=== PATIENT | male | born 1990 | race Caucasian/White ===

== ENCOUNTER 2017-09-23 21:08 | Emergency (ER) | payer OTHER ==
[~2017-09-23] VITALS: Ht 175.3 cm; Wt 70.3 kg
[2017-09-23 21:20] VITALS: BP 148/90
[2017-09-23] MEDS ORDERED: NOVOLOG100 UNIT/1 SUBQ (21:25)
[2017-09-23] MEDS ORDERED: LEVEMIR100 UNIT/1 SUBQ (21:25)
[2017-09-23] MEDS ORDERED: BACTRIM DS TAB1 EACH PO (21:41)
== END 2017-09-23 21:48 | disposition home or self-care (01) ==
LOC: M.ERS 21:08
DX: F15.10 Other stimulant abuse, uncomplicated (principal); S20.419A Abrasion of unspecified back wall of thorax, initial encounter; S30.811A Abrasion of abdominal wall, initial encounter; E11.9 Type 2 diabetes mellitus without complications; X58.XXXA Exposure to other specified factors, initial encounter; Y93.89 Activity, other specified; Y92.89 Other specified places as the place of occurrence of the external cause; Y99.8 Other external cause status

== ENCOUNTER 2019-11-24 16:03 | Emergency (ER) | payer OTHER ==
[~2019-11-24] VITALS: Ht 175.3 cm; Wt 77.1 kg
[~2019-11-24 16:03] MED LIST: BACTRIM DS TAB1 EACH PO; LEVEMIR100 UNIT/1 SUBQ; NOVOLOG100 UNIT/1 SUBQ
[2019-11-24 16:37] LABS: ABSOLUTE BASOPHILS 0.1 thou/uL (0.0-0.2); ABSOLUTE EOSINOPHILS 0.1 thou/uL (0.0-0.7); ABSOLUTE LYMPHOCYTES 2.9 thou/uL (0.8-5.3); ABSOLUTE MONOCYTES 0.9 thou/uL (0.0-1.2); ABSOLUTE NEUTROPHILS 7.4 thou/uL (1.6-8.1); BASOPHILS 0.6 %; CALCIUM 8.3 mg/dL (8.5-10.1); CREATININE 1.2 mg/dL (0.6-1.3); EOSINOPHILS 0.8 %; HEMATOCRIT 42.1 % (42.0-52.0); HEMOGLOBIN 14.2 gm/dL (14.0-18.0); LYMPHOCYTES 25.3 %; MCH 31.5 pg (26.0-34.0); MCHC 33.8 g/dL (28.0-37.0); MCV 93.2 fL (80.0-100.0); MONOCYTES 8.1 %; MPV 9.8 fl. (7.2-11.1); NUCLEATED RBCS 0 /100WBC; PLATELET COUNT* 232 thou/uL (150-400); POLYS 65.2 %; RBC 4.52 mil/uL (4.50-6.00); WBC 11.4 thou/uL (4.0-11.0)
[2019-11-24 16:40] LABS: POTASSIUM 2.5 mmol/L (3.5-5.1)
[2019-11-24 16:42] LABS: ALBUMIN 3.7 g/dL (3.4-5.0); TOTAL BILIRUBIN 0.3 mg/dL (<0.1-1.0)
[2019-11-24 17:23] LABS: URINE BILIRUBIN NEGATIVE (Negative); URINE BLOOD 2+ (Negative); URINE CLARITY CLEAR; URINE COLOR YELLOW; URINE GLUCOSE-RANDOM 3+ (Negative); URINE KETONES NEGATIVE (Negative); URINE LEUKOCYTES-REFLEX NEGATIVE (Negative); URINE NITRITE-REFLEX NEGATIVE (Negative); URINE PROTEIN 1+ (Negative); URINE UROBILINOGEN 0.2 E.U./dl (0.2-1.0)
[2019-11-24 17:30] LABS: AMP/METHAMP Negative (Negative); BARBITURATES Negative (Negative); BENZODIAZEPINES Negative (Negative); COCAINE Negative (Negative); METHADONE Negative (Negative); OPIATES Negative (Negative); PCP Negative (Negative); THC POSITIVE (Negative)
[2019-11-24 17:44] LABS: MUCUS None Seen strn/LPF (None Seen); SQUAMOUS NONE SEEN /LPF (0-3)
[2019-11-24 17:45] LABS: BACTERIA-REFLEX None Seen /HPF (None Seen); CASTS None Seen /LPF (None Seen); CRYSTALS None Seen /LPF (None Seen); URINE RBC 3-10 Few /HPF (0-2); URINE WBC-REFLEX 0-5 Rare /HPF (0-5)
[2019-11-24 19:30] VITALS: BP 101/51
--- NOTE | 2019-11-25 13:55 | EKG ---
[place] [address] ELECTROCARDIOGRAM REPORT Name: KIM PLATA Room: [facility]#: [id number] Admission: 11/24/19 Attend Phys: Discharge: 11/24/19 Date of : 86 Date of Service: 11/24/19 1613 Report #: [id number] THIS REPORT FOR: //name// 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 11/25/19 1352 12 12 Андрей Patel MD, FACC /EPI
== END 2019-11-24 20:30 | disposition home or self-care (01) ==
LOC: M.ERS 16:03
PROVIDERS: Personal Emergency Response Attendant
DX: E11.649 Type 2 diabetes mellitus with hypoglycemia without coma (principal); E87.6 Hypokalemia; R41.82 Altered mental status, unspecified; Z79.4 Long term (current) use of insulin

== ENCOUNTER 2020-10-01 19:15 | Emergency (ER) | payer OTHER ==
[~2020-10-01] VITALS: Ht 175.3 cm; Wt 72.6 kg
[2020-10-01] MEDS ORDERED: OMEPRAZOLE 20 M20 M1 PO (19:24)
[2020-10-01] MEDS ORDERED: APAP W/CODEINE1 TA2 PO (19:56)
[2020-10-01] MEDS ORDERED: AMOXICILLIN875 MG PO (19:56)
[2020-10-01] MEDS ORDERED: AUGMENTIN 875-1 EACH PO (19:59)
[2020-10-01 20:13] VITALS: BP 142/70
== END 2020-10-01 20:14 | disposition home or self-care (01) ==
LOC: M.ERS 19:15
DX: J02.0 Streptococcal pharyngitis (principal); Z20.822 Contact with and (suspected) exposure to COVID-19; E11.9 Type 2 diabetes mellitus without complications

== ENCOUNTER 2020-11-04 17:19 | Emergency (ER) | payer OTHER ==
[~2020-11-04] VITALS: Ht 175.3 cm; Wt 72.6 kg
[~2020-11-04 17:19] MED LIST changes: +AMOXICILLIN875 MG PO; +APAP W/CODEINE1 TA2 PO; +AUGMENTIN 875-1 EACH PO; +OMEPRAZOLE 20 M20 M1 PO
[2020-11-04] MEDS ORDERED: NOVOLIN 70100 UNIT/1 SUBQ (17:38)
[2020-11-04] MEDS ORDERED: LANTUS SUBQ ×3 (17:39→17:51)
[2020-11-04] MEDS ORDERED: NOVOLOG MI100 UNIT/2 SUBQ (17:51)
[2020-11-04 18:07] VITALS: BP 139/82
== END 2020-11-04 18:07 | disposition home or self-care (01) ==
LOC: M.ERS 17:19
DX: E10.9 Type 1 diabetes mellitus without complications (principal); Z76.0 Encounter for issue of repeat prescription; Z79.899 Other long term (current) drug therapy

== ENCOUNTER 2021-03-16 14:11 | Emergency (ER) | payer OTHER ==
[~2021-03-16] VITALS: Ht 175.3 cm; Wt 72.6 kg
[~2021-03-16 14:11] MED LIST changes: +LANTUS SUBQ; +NOVOLIN 70100 UNIT/1 SUBQ; +NOVOLOG MI100 UNIT/2 SUBQ
[2021-03-16] MEDS ORDERED: HYDROCODON-ACE1 EAC7 PO (14:28)
[2021-03-16] MEDS ORDERED: CEPHALEXIN500 MG PO (14:28)
[2021-03-16 14:40] VITALS: BP 135/82
== END 2021-03-16 14:40 | disposition home or self-care (01) ==
LOC: M.ERS 14:11
DX: S61.213A Laceration without foreign body of left middle finger without damage to nail, initial encounter (principal); E10.9 Type 1 diabetes mellitus without complications; Z79.899 Other long term (current) drug therapy; W26.0XXA Contact with knife, initial encounter; Y93.89 Activity, other specified; Y92.89 Other specified places as the place of occurrence of the external cause; Y99.8 Other external cause status